=== PATIENT | male | born 1990 | race Caucasian/White ===

== ENCOUNTER 2017-01-26 10:04 | Emergency (ER) | payer MEDICAID ==
[~2017-01-26] VITALS: Ht 177.8 cm; Wt 91.2 kg
[2017-01-26 10:13] VITALS: BP 119/84
[2017-01-26 11:08] LABS: RAPID INFLUENZA A Negative (Negative); RAPID INFLUENZA B Negative (Negative)
== END 2017-01-26 11:14 | disposition home or self-care (01) ==
LOC: ED 11:08
DX: J20.8 Acute bronchitis due to other specified organisms (principal)
CPT/HCPCS: 71020; 87400; 99285

== ENCOUNTER 2017-10-30 16:38 | Emergency (ER) | payer SELFPAY ==
[~2017-10-30] VITALS: Ht 180.3 cm; Wt 98.4 kg
[2017-10-30 16:46] VITALS: BP 110/71
[2017-10-30] MEDS ORDERED: LIDOCAINE-MPF 1%, 5ML INFIL ONE (17:00)
== END 2017-10-30 18:45 | disposition home or self-care (01) ==
LOC: ED 18:30
DX: L02.411 Cutaneous abscess of right axilla (principal); M79.89 Other specified soft tissue disorders
CPT/HCPCS: 10060; 99284

== ENCOUNTER 2019-02-07 14:32 | Emergency (ER) | payer SELFPAY ==
[~2019-02-07] VITALS: Ht 180.3 cm; Wt 101.7 kg
[2019-02-07 14:45] VITALS: BP 123/69
[2019-02-07] MEDS ORDERED: HYDROcodone/APAP 7.5-325MG/15ML UDC PO ONE (15:30)
[2019-02-07] MEDS ORDERED: DEXAMETHASONE 4 MG/ML, 1ML PO ONE (15:30)
[2019-02-07] MEDS ORDERED: DEXAMETHASONE 4 MG/ML, 1ML ONE (15:37)
[2019-02-07] MEDS ORDERED: HYDROcodone/APAP 7.5-325MG/15ML UDC ONE (15:38)
== END 2019-02-07 16:12 | disposition home or self-care (01) ==
LOC: ED 16:06
DX: J03.00 Acute streptococcal tonsillitis, unspecified (principal)
CPT/HCPCS: 87880; 99283; J1100

== ENCOUNTER 2019-12-03 05:55 | Emergency (ER) | payer MEDICAID, OTHER ==
[~2019-12-03] VITALS: Ht 182.9 cm; Wt 110.0 kg
[2019-12-03 06:05] VITALS: BP 123/82
--- NOTE | 2019-12-03 06:09 | NUR ---
pt bib remsa for a GLF this am while walking down stairs. states he slipped and landed wrong on his ankle. Denies LOC or head trauma. No blood thinners. Pt has swelling and deformity on the left ankle, CMS intact. pt placed on SPO2/BP monitoring. significant other at bs. NAD, call light on lap, provided ice for ankle and warm blankets for comfort. Elio BDAILLO at bs for eval and poc. wctm.
[2019-12-03] MEDS ORDERED: MORPHINE SULFATE 4 MG/ML, 1ML IVPush PRN (06:30)
[2019-12-03] MEDS ORDERED: SODIUM CHLORIDE FLUSH 10ML SYR IVF ONE (06:30)
[2019-12-03] MEDS ORDERED: ONDANSETRON 2MG/ML, 2ML IVPush ONE (06:30)
[2019-12-03] MEDS ORDERED: ONDANSETRON 2MG/ML, 2ML ONE (06:41)
[2019-12-03] MEDS ORDERED: MORPHINE SULFATE 4 MG/ML, 1ML ONE (06:41)
--- NOTE | 2019-12-03 07:08 | NUR ---
REPORT RECEIVED FROM MARCIAL HUYNH.
--- NOTE | 2019-12-03 07:09 | NUR ---
bedside report to kalyan owen, pt care transferred at this time.
--- NOTE | 2019-12-03 07:39 | NUR ---
EMT AT BEDSIDE FOR SPLINT AT THIS TIME.
--- NOTE | 2019-12-03 08:33 | NUR ---
Patient given discharge instructions and they have confirmed that they understand the instructions. Patient ambulatory with steady gait.
== END 2019-12-03 08:34 | disposition home or self-care (01) ==
LOC: ED 06:26
DX: S82.62XA Displaced fracture of lateral malleolus of left fibula, initial encounter for closed fracture (principal); W18.49XA Other slipping, tripping and stumbling without falling, initial encounter; Y93.89 Activity, other specified; Y92.89 Other specified places as the place of occurrence of the external cause; Y99.8 Other external cause status
CPT/HCPCS: 29515; 73610; 73630; 96374; 96375; 99284; J2270; J2405